=== PATIENT | male | born 1980 | race Caucasian/White ===

== ENCOUNTER 2019-12-11 19:29 | Observation (INO) | payer OTHER ==
[~2019-12-11] VITALS: Ht 190.5 cm; Wt 208.7 kg
[~2019-12-11 19:29] MED LIST: LEVAQUIN 500 M500 M6 PO; NOHOMEMEDICATIONS
[2019-12-11 19:39] VITALS: BP 138/92
[2019-12-11] MEDS ORDERED: MEDROLDOSEPACK PO (19:42)
[2019-12-11 20:34] LABS: ABSOLUTE BASOPHILS 0.1 thou/uL (0.0-0.2); ABSOLUTE LYMPHOCYTES 1.4 thou/uL (0.8-5.3); ABSOLUTE MONOCYTES 0.6 thou/uL (0.0-1.2); ABSOLUTE NEUTROPHILS 8.2 thou/uL (1.6-8.1); BASOPHILS 0.8 %; EOSINOPHILS 0.4 %; HEMOGLOBIN 14.1 gm/dL (14.0-18.0); LYMPHOCYTES 13.6 %; MCH 31.3 pg (26.0-34.0); MCHC 33.7 g/dL (28.0-37.0); MONOCYTES 5.5 %; MPV 7.9 fl. (7.2-11.1); NUCLEATED RBCS 0 /100WBC; PLATELET COUNT* 242 thou/uL (150-400); POLYS 79.7 %; RBC 4.51 mil/uL (4.50-6.00); RDW-CV 13.9 % (10.5-14.5); WBC 10.3 thou/uL (4.0-11.0)
[2019-12-11 20:43] LABS: CALCIUM 8.5 mg/dL (8.5-10.1); CREATININE 1.4 mg/dL (0.6-1.3); POTASSIUM 4.2 mmol/L (3.5-5.1)
[2019-12-11 20:55] LABS: ALBUMIN 4.2 g/dL (3.4-5.0); TOTAL BILIRUBIN 0.4 mg/dL (<0.1-1.0); TOTAL PROTEIN 8.6 g/dL (6.4-8.2)
[2019-12-11 22:13] LABS: APTT 26.2 Seconds (25.0-31.3); PROTIME 10.7 Seconds (9.20-11.50)
[2019-12-11 22:20] VITALS: BP 151/87
[2019-12-11 22:21] VITALS: BP 123/71
[2019-12-12] VITALS (12 sets, daily range): BP systolic 99–120; BP diastolic 50–66
--- NOTE | 2019-12-12 08:28 | EKG ---
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1980 Requested By: Alessia Barlow Order Number: [id number] MD: Gurvinder Schneider Measurements Intervals [place] Rate: 210 P: -48 FL: 44 QRS: 35 QRSD: 91 T: QT: 259 QTc: 484 Interpretive Statements Supraventricular tachycardia Repolarization abnormality, prob rate related Artifact in lead(s) II,III,aVR,aVL,aVF and baseline wander in lead(s) II Compared to ECG 03/28/2016 10:32:53 Early repolarization now present Sinus tachycardia no longer present Electronically Signed On 12-12-2019 8:28:11 CDT by Gurvinder Schneider [email or web address] <ELECTRONICALLY SIGNED> By: Gurvinder Schneider MD, FACC 12/12/19827 31 31 Gurvinder Schneider MD, FACC /EPI
[2019-12-12 09:18] LABS: CHOLESTEROL 139 mg/dL (<200); HDL CHOLESTEROL 39 mg/dL (>40); LDL CHOLESTEROL 73 mg/dL (<100); SERUM ASSESSMENT Clear; TC:HDL 3.6 Ratio (Not establshd); TRIGLYCERIDE 137 mg/dL (<150); VLDL 27 mg/dL (<40)
--- NOTE | 2019-12-12 12:44 | EKG ---
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1980 Requested By: Alessia Barlow Order Number: [id number] Reading MD: Beau Bhakta Measurements Intervals [place] Rate: 96 P: 53 MN: 144 QRS: -6 QRSD: 101 T: 7 QT: 354 QTc: 448 Interpretive Statements Sinus rhythm Inferior and anterolateral ST segment depression; consider global ischemia Baseline wander in lead(s) II,III,aVF Compared to ECG 12/11/2019 19:32:56 Possible ischemia now present Supraventricular tachycardia no longer present Electronically Signed On 12-12-2019 12:44:36 CDT by Beau Bhakta [email or web address] <ELECTRONICALLY SIGNED> By: Beau Bhakta MD, FACC 12/12/19 1244 39 39 Beau Bhakta MD, FAC /EPI
--- NOTE | 2019-12-12 12:49 | EKG ---
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1980 Requested By: Brandy Mcdowell Order Number: [id number] Latoya MD: Beau Bhakta Measurements Intervals [place] Rate: 65 P: 24 NE: 138 QRS: 0 QRSD: 79 T: -13 QT: 470 QTc: 489 Interpretive Statements Sinus rhythm Low voltage, precordial leads Borderline T abnormalities, diffuse leads Borderline prolonged QT interval Compared to ECG 12/11/2019 19:40:22 Low QRS voltage now present T-wave abnormality now present Early repolarization no longer present Prominent diffuse ST segment depression has remitted Electronically Signed On 12-12-2019 12:49:07 CDT by Beau Bhakta [email or web address] <ELECTRONICALLY SIGNED> By: Beau Bhakta MD, FACC 12/12/19 1249 1103 1103 Beau Bhakta MD, [facility] /EPI
[2019-12-12] MEDS ORDERED: METOPROLOL TART25 MG PO (16:26)
--- NOTE | 2019-12-12 16:46 | CARD ---
[address] [address] CARDIAC CATH REPORT Name: LACIESUNIL BEN Room: [address] Andreas Vivas#: [id number] Admission: 12/11/19 Attend Phys: Braxton Shell, Discharge: Date of : 78 Report #: [id number] THIS REPORT FOR: //name// cc: Stephon Lomeli DO Stephon Lomeli DO ~ APPROVED REPORT Study performed: 12/12/2019 12:55:34 Patient Details Patient Status: In-Patient Room #: The patient is a 39 year-old male Event Personnel Gurvinder Schneider Organic Chemist, Karo Reinoso RN RN, Nadiya Avalos RTR ScrubJ Luis Adam RTR Monitor Procedures Performed Left Heart Cath w/or w/o Coronaries [id number] [facility] Hemostasis with Hemoband Hemostasis w/ Mynx Admission/Lab Medications/Medications given during procedure Lidocaine Subcut 4 ml, Nitroglycerin IA 200 mcg, Verapamil IA 2.5 mg, Heparin IV 5000 units, Fentanyl IV 25 mcg, Midazolam (Versed) IV 1 mg, Lidocaine Subcut 20 ml Procedure Narrative The patient was brought electively to the Cardiac Catheterization Laboratory and was prepped and draped in a sterile manner. The right femoral was infiltrated with 2% Lidocaine subcutaneous anesthesia. A [place] 6 FR sheath was inserted into the right femoral artery. Coronary angiography was performed using coronary diagnostic catheters. The right coronary system was accessed and visualized with a Diagnostic 3DRC 6Fr catheter. The left coronary system was accessed and visualized with a Diagnostic JL4 6Fr catheter. The left ventricle was accessed and visualized with a Diagnostic Straight Pigtail 6Fr catheter. Closure device was deployed with a 6 Fr Mynx. The patient tolerated the procedure well and there were no complications associated with the procedure. There was no hematoma. Intraoperative Conscious Sedation Sedation start time: 1416 Case end Time: 143 Fentanyl 25 mcg Versed 1 [place] [address] CARDIAC CATH REPORT Name: LACIESUNIL BEN Room: [address] M.R.#: [id number] Admission: 12/11/19 Attend Phys: Braxton Shell, Discharge: Date of : 78 Report #: [id number] Fluoro Time: 25.7 minutes Dose: DAP 424462 cGycm2 4303.91 mGy Contrast Type and Amount: Visipaque 250 ml Diagnostic Cath Left Main The left main coronary artery is normal and bifurcates into a left anterior descending and circumflex coronary artery. LAD The left anterior descending coronary artery is normal in its proximal mid and distal portion. Diagonal 1 A large proximal diagonal branch is normal. Diagonal 2 A moderate sized branched second diagonal is normal. Circumflex The circumflex coronary artery is normal in its proximal mid and distal portion. OM1 A small first obtuse marginal branch is normal. OM2 A small second obtuse marginal branch is normal. OM3 A large caliber third obtuse marginal branch is normal. Right Coronary The right coronary artery is a large and dominant vessel that is normal in its proximal mid and distal portion. R PDA The right PDA is moderate in size and normal. RPLV The right posterior lateral branch is moderate size and normal. Left Ventriculography The left ventricle is normal in size with normal contractility. The left ventricular ejection fraction is estimated to be 50%. Hemodynamics The aortic pressure is 105/72 mmHg with a mean of 70 mmHg. The left ventricular pressure is 121/17 mmHg with a mean of mmHg. The left ventricular end diastolic pressure is 33 mmHg. Conclusion 1. Normal coronary arteries. 2. Normal left ventricular systolic function. 3. Elevated left ventricular end-diastolic pressure consistent with diastolic [place] [address] CARDIAC CATH REPORT Name: LACIESUNIL Room: [address]#: [id number] Admission: 12/11/19 Attend Phys: Braxton Shell, Discharge: Date of : 78 Report #: [id number] 1. Continue medical management and aggressive risk factor modification. <ELECTRONICALLY SIGNED> By: Gurvinder Schneider MD, FACC 12/12/19 1646 1646 [id number] MD, FACC /INF
== END 2019-12-12 19:00 | disposition home or self-care (01) ==
LOC: M.ERS 19:29 → M.2W 20:28 → M.TBA-ER 20:28 → M.2W 20:47
PROVIDERS: Personal Emergency Response Attendant; Registered Nurse; ADMIT Family Medicine; ATTEND Family Medicine
DX: I47.1 Supraventricular tachycardia (principal); R00.2 Palpitations; I21.4 Non-ST elevation (NSTEMI) myocardial infarction; E66.01 Morbid (severe) obesity due to excess calories; N17.9 Acute kidney failure, unspecified; F17.210 Nicotine dependence, cigarettes, uncomplicated; Z79.899 Other long term (current) drug therapy; Z20.828 Contact with and (suspected) exposure to other viral communicable diseases; Z68.43 Body mass index [BMI] 50.0-59.9, adult

== ENCOUNTER 2020-04-20 14:12 | Emergency (ER) | payer OTHER ==
[~2020-04-20] VITALS: Ht 190.5 cm; Wt 195.1 kg
[~2020-04-20 14:12] MED LIST changes: +MEDROLDOSEPACK PO; +METOPROLOL TART25 MG PO
[2020-04-20 14:39] LABS: ABSOLUTE BASOPHILS 0.2 thou/uL (0.0-0.2); ABSOLUTE EOSINOPHILS 0.2 thou/uL (0.0-0.7); ABSOLUTE MONOCYTES 0.5 thou/uL (0.0-1.2); ABSOLUTE NEUTROPHILS 8.2 thou/uL (1.6-8.1); BASOPHILS 1.5 %; EOSINOPHILS 1.5 %; HEMATOCRIT 43.7 % (42.0-52.0); HEMOGLOBIN 14.6 gm/dL (14.0-18.0); MCH 30.3 pg (26.0-34.0); MCHC 33.4 g/dL (28.0-37.0); MCV 90.5 fL (80.0-100.0); MONOCYTES 4.6 %; NUCLEATED RBCS 0 /100WBC; PLATELET COUNT* 250 thou/uL (150-400); POLYS 74.4 %; RBC 4.83 mil/uL (4.50-6.00); RDW-CV 14.6 % (10.5-14.5); WBC 11.1 thou/uL (4.0-11.0)
[2020-04-20 14:47] LABS: CREATININE 1.3 mg/dL (0.6-1.3); POTASSIUM 3.9 mmol/L (3.5-5.1)
[2020-04-20 15:06] LABS: ALBUMIN 4.1 g/dL (3.4-5.0); TOTAL BILIRUBIN 0.6 mg/dL (<0.1-1.0); TOTAL PROTEIN 8.3 g/dL (6.4-8.2)
[2020-04-20 16:55] VITALS: BP 121/61
--- NOTE | 2020-04-21 09:29 | EKG ---
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1980 Requested By: Yariel Littlejohn Order Number: [id number] Reading MD: Gurvinder Schneider Measurements Intervals [place] Rate: 93 P: 56 OR: 136 QRS: 3 QRSD: 103 T: 22 QT: 350 QTc: 436 Interpretive Statements Sinus rhythm Minimal ST depression, anterolateral leads Compared to ECG 04/20/2020 14:17:11 ST (T wave) deviation now present Supraventricular tachycardia no longer present Early repolarization no longer present Electronically Signed On 04-21-2020 9:29:30 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
--- NOTE | 2020-04-21 09:29 | EKG ---
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1980 Requested By: Yariel Littlejohn Order Number: [id number] MD: Gurvinder Schneider Measurements Intervals [place] Rate: 196 P: 0 NM: QRS: 21 QRSD: 97 T: 220 QT: 276 QTc: 499 Interpretive Statements Supraventricular tachycardia Repolarization abnormality, prob rate related Compared to ECG 12/12/2019 11:03:13 Early repolarization now present Sinus rhythm no longer present T-wave abnormality no longer present Electronically Signed On 04-21-2020 9:29:16 BRONC BREAKER by Gurvinder Schneider [email or web address] <ELECTRONICALLY SIGNED> By: Gurvinder Schneider MD, FACC 04/21/20 0929 1417 1417 Gurvinder Schneider MD, [facility] /EPI
== END 2020-04-20 16:55 | disposition home or self-care (01) ==
LOC: M.ERS 14:12
PROVIDERS: Emergency Medicine Emergency Medical Services
DX: I47.1 Supraventricular tachycardia (principal); F17.210 Nicotine dependence, cigarettes, uncomplicated; Z90.49 Acquired absence of other specified parts of digestive tract